=== PATIENT | female | born 1945 | race Caucasian/White ===

== ENCOUNTER → 2017-11-13 11:18 | Outpatient (CLI) | payer MEDICARE, OTHER, SELFPAY ==
--- NOTE | 2017-11-13 11:27 | DI.RAD.S_ITS ---
PROCEDURE: XR WRIST LT MIN 3V INDICATIONS: FALL FROM GROUND LEVEL TECHNIQUE: 4 views of the wrist were acquired. COMPARISON: None. FINDINGS: Bones: There is bony step-off involving the posterior aspect of the distal radius, as well as a vague linear lucency involving the articular surface of the distal radius. No suspicious bony lesions. Scaphoid view: Negative Soft tissues: Chondrocalcinosis involving the triangular fibrocartilage complex. Joint space narrowing and periarticular osteophyte formation at the scaphotrapezial and first metacarpal joints. IMPRESSION: 1. Findings suggestive of mildly displaced distal radial fracture. 2. Osteoarthritis. Dictated by: Jon Holguin M.D. on 11/13/2017 at 11:46 Approved by: Jon Holguin M.D. on 11/13/2017 at 11:48
== END ==
PROVIDERS: Family Provider Family Medicine; PCP Family Medicine; Visit Provider Physician Assistant
DX: S69.92XA Unspecified injury of left wrist, hand and finger(s), initial encounter (principal); M19.032 Primary osteoarthritis, left wrist; W18.30XA Fall on same level, unspecified, initial encounter
CPT/HCPCS: 73110

== ENCOUNTER → 2018-04-19 13:24 | Outpatient (CLI) | payer MEDICARE, OTHER, SELFPAY ==
[2018-04-19 15:57] LABS: Cholesterol 204 mg/dL (140-199); HDL Cholesterol 54 mg/dL (40-60); LDL Cholesterol Calculated 124 mg/dL (<100); Triglycerides 128 mg/dL (35-150)
[2018-04-19 16:14] LABS: Vitamin D 25 Hydroxy (D3) 35.1 ng/mL (30.0-100.0)
== END ==
PROVIDERS: Family Provider Family Medicine; PCP Student in an Organized Health Care Education/Training Program; Visit Provider Student in an Organized Health Care Education/Training Program
DX: I10 Essential (primary) hypertension (principal); M81.0 Age-related osteoporosis without current pathological fracture; Z13.220 Encounter for screening for lipoid disorders
CPT/HCPCS: 36415; 80061; 82306

== ENCOUNTER → 2018-04-22 11:24 | Outpatient (CLI) | payer MEDICARE, OTHER, SELFPAY ==
[2018-04-25 16:46] LABS: Fecal Immunochemical Test NOT DETECTED
== END ==
PROVIDERS: PCP Student in an Organized Health Care Education/Training Program; Visit Provider Student in an Organized Health Care Education/Training Program
DX: I10 Essential (primary) hypertension (principal); M81.0 Age-related osteoporosis without current pathological fracture; Z13.220 Encounter for screening for lipoid disorders
CPT/HCPCS: 82274

== ENCOUNTER → 2018-05-12 13:57 | Outpatient (CLI) | payer MEDICARE, OTHER, SELFPAY ==
--- NOTE | 2018-05-12 13:58 | DI.RAD.S_ITS ---
This blank DEXA report has been sent in error by the PACS system. The correct and complete report will be forthcoming in 1-2 days. Thank you for your patience and understanding. Dictated by: Chema Good M.D. on 05/12/2018 at 14:33 Approved by: Chema Good M.D. on 05/12/2018 at 14:34
== END ==
PROVIDERS: PCP Student in an Organized Health Care Education/Training Program; Visit Provider Student in an Organized Health Care Education/Training Program
DX: M81.0 Age-related osteoporosis without current pathological fracture (principal); Z78.0 Asymptomatic menopausal state
CPT/HCPCS: 77080

== ENCOUNTER → 2019-11-17 11:06 | Outpatient (CLI) | payer MEDICARE, OTHER, SELFPAY ==
[2019-11-17 12:22] LABS: Cholesterol 185 mg/dL (140-199); HDL Cholesterol 68 mg/dL (40-60); LDL Cholesterol Calculated 89 mg/dL (<100); Triglycerides 142 mg/dL (35-150)
== END ==
PROVIDERS: PCP Student in an Organized Health Care Education/Training Program; Referring Provider Student in an Organized Health Care Education/Training Program; Visit Provider Student in an Organized Health Care Education/Training Program
DX: E78.00 Pure hypercholesterolemia, unspecified (principal)
CPT/HCPCS: 36415; 80061

== ENCOUNTER → 2021-04-25 14:51 | Outpatient (CLI) | payer MEDICARE, OTHER, SELFPAY ==
[2021-04-25 17:51] LABS: Blood Urea Nitrogen 27 mg/dL (7-17); Calcium 10.8 mg/dL (8.4-10.2); Carbon Dioxide 29 mmol/L (22-32); Chloride 103 mmol/L (98-107); Estimated Glomerular Filt Rate 53.8 mL/min (>60); Glucose 86 mg/dL (80-110); HEMOLYSIS < 15 (0-50); Potassium 3.8 mmol/L (3.4-5.1); Sodium 137 mmol/L (137-145)
== END ==
PROVIDERS: PCP Student in an Organized Health Care Education/Training Program; Referring Provider Student in an Organized Health Care Education/Training Program; Visit Provider Student in an Organized Health Care Education/Training Program
DX: M81.0 Age-related osteoporosis without current pathological fracture (principal); Z78.0 Asymptomatic menopausal state; I10 Essential (primary) hypertension
CPT/HCPCS: 36415; 77080; 77081; 80048

== ENCOUNTER → 2021-05-14 10:54 | Outpatient (CLI) | payer MEDICARE, OTHER, SELFPAY ==
[2021-05-14 12:25] LABS: BUN Creatinine Ratio 23.1 (6-22); Blood Urea Nitrogen 21 mg/dL (7-17); Calcium 10.6 mg/dL (8.4-10.2); Carbon Dioxide 28 mmol/L (22-32); Chloride 106 mmol/L (98-107); Estimated Glomerular Filt Rate 59.9 mL/min (>60); Glucose 92 mg/dL (80-110); HEMOLYSIS < 15 (0-50); Potassium 4.6 mmol/L (3.4-5.1); Sodium 139 mmol/L (137-145)
[2021-05-14 12:28] LABS: Vitamin D 25 Hydroxy (D3) 31.9 ng/mL (30.0-100.0)
[2021-05-15 07:18] LABS: Parathyroid Hormone Int 54 pg/mL (15-65)
== END ==
PROVIDERS: PCP Student in an Organized Health Care Education/Training Program; Referring Provider Student in an Organized Health Care Education/Training Program; Visit Provider Student in an Organized Health Care Education/Training Program
DX: E83.52 Hypercalcemia (principal); N17.9 Acute kidney failure, unspecified
CPT/HCPCS: 36415; 80048; 82306; 83970

== ENCOUNTER → 2021-07-16 09:27 | Outpatient (CLI) | payer MEDICARE, OTHER, SELFPAY ==
--- NOTE | 2021-07-17 08:57 | PM.TREADMILL ---
Cardiac Stress Test Report Referral & Results Date Patient Seen: 07/17/21 Time Patient Seen: 08:45 Requesting provider: Rajendra Torre Indication: Dyspnea on exertion Rest ECG: NSR Procedure Note: Today, following both written and verbal informed consent, the patient was exercised according to a standard Chris protocol. The patient went for a total of 4 minutes achieving a maximum heart rate of 174 maximum systolic blood pressure of 170. This is approximately 7.0 METs. Exercise was terminated at this point because of fatigue. Patient was also given Cardiolite through a previously started Hep-Lock IV by the agronomy technician approximately 1 minute prior to the cessation of exercise. Normal hemodynamic response to exercise. Marked exercise of capacity impairment (FA I +30% on active scale). ST depressions in leads 2, 3, AVF, and precordial leads. Occasional PACs/PVC. No signs or symptoms of angina. Presenting symptom of SOB was reproduced early in exercise protocol. O2 sat 94% at that time. Impression: Intermediate probability for ischemia. Perfusion imaging pending. Please note: Actual ECG tracings can be found in the PACS system.
--- NOTE | 2021-07-17 20:21 | DI.NM.S_ITS ---
DATE OF SERVICE: 07/16/2021 PROCEDURE: Exercise perfusion study. INDICATION: Dyspnea on exertion, hypertension. RADIOPHARMACEUTICAL: 27.0 millicurie technetium-99m Myoview IV was injected at stress and 24.7 millicurie technetium-99m Myoview IV was injected at rest. CARDIAC STRESS: The patient underwent exercise perfusion study under the supervision of an attending staff. She walked on Chris protocol for 4 minutes and 01 seconds. She felt fatigue and shortness of breath. Baseline blood pressure 148/88. Peak blood pressure 170/102. within 1 minute, her heart rate was about 160. Maximum heart rate was 174 beats per minute. Achieved 122 percent of target heart rate. There was enhanced chronotropic response. Baseline rhythm was sinus with repolarization changes and some ST flattening in inferolateral leads. During stress, there was some nonspecific upsloping ST depression in inferolateral leads without any convincing ischemic changes. No significant arrhythmias seen. RAW DATA: There appears to be adequate myocardial uptake. GATED STUDY: Stress LV ejection fraction 81 percent without any obvious wall motion abnormalities. Resting end-diastolic volume 73 mL. TID ratio 1.0, which is within normal limits. Lung/heart ratio 0.38, which is within normal limits. MYOCARDIAL PERFUSION SCAN: Stress supine images revealed normal myocardial perfusion. On resting supine, there was minimally decreased perfusion of apex. However, the stress supine and stress prone images revealed normal myocardial perfusion. CONCLUSION: Normal myocardial perfusion with stress left ventricular ejection fraction 81 percent. Significantly diminished exercise tolerance. LINDA positive 30 percent. The patient walked on Chris protocol for 4 minutes and 01 seconds. Enhanced chronotropic response. Mildly hypertensive blood pressure response. Diastolic blood pressure increased from 88 to 102 mmHg. The patient had shortness of breath and fatigue. Oxygen saturation was 94 percent. As far as perfusion scan is concerned, this is a low-risk myocardial perfusion scan. Ashley Campbell - BRITNEY/jena/son doc#: [id number]/job#: [id number] dd: 07/17/2021 17:17:00 dt: 07/17/2021 20:04:00 DICTATING MD/COPIES TO: Dee Dee Colmenares MD COPIES MNE: ALETA;
== END ==
PROVIDERS: PCP Student in an Organized Health Care Education/Training Program; Referring Provider Student in an Organized Health Care Education/Training Program; Visit Provider Student in an Organized Health Care Education/Training Program
DX: R06.00 Dyspnea, unspecified (principal); Z20.822 Contact with and (suspected) exposure to COVID-19
CPT/HCPCS: 78452; 87635; 93016; 93017; 93018; C9803; A9502

== ENCOUNTER → 2021-07-16 11:17 | Outpatient (CLI) | payer MEDICARE, OTHER, SELFPAY ==
[2021-07-16 12:26] LABS: COVID19 -Nasal RAPID Negative (Negative)
== END ==
PROVIDERS: PCP Student in an Organized Health Care Education/Training Program; Visit Provider Family Medicine Sleep Medicine
DX: Z20.822 Contact with and (suspected) exposure to COVID-19 (principal)
CPT/HCPCS: 87635

== ENCOUNTER → 2021-12-29 07:17 | Outpatient (CLI) | payer MEDICARE, OTHER, SELFPAY ==
[2021-12-29 10:32] LABS: Blood Urea Nitrogen 19 mg/dL (7-17); Carbon Dioxide 25 mmol/L (22-32); Chloride 105 mmol/L (98-107); Estimated Glomerular Filt Rate > 60 mL/min (>60); Glucose 93 mg/dL (80-110); HEMOLYSIS < 15 (0-50); Potassium 3.7 mmol/L (3.4-5.1); Sodium 140 mmol/L (137-145)
[2021-12-31 07:01] LABS: Parathyroid Hormone Int 68 pg/mL (15-65)
== END ==
PROVIDERS: PCP Student in an Organized Health Care Education/Training Program; Referring Provider Student in an Organized Health Care Education/Training Program; Visit Provider Student in an Organized Health Care Education/Training Program
DX: E21.0 Primary hyperparathyroidism (principal); I10 Essential (primary) hypertension
CPT/HCPCS: 36415; 80048; 83970

== ENCOUNTER → 2023-03-08 07:09 | Outpatient (CLI) | payer MEDICARE, OTHER, SELFPAY ==
[2023-03-08 08:13] LABS: Add Manual Diff / Slide Review NO; Basophils Absolute Auto 0 /uL (0-100); Basophils Percent Auto 0.4 % (0-2); Eosinophils Absolute Auto 300 /uL (0-450); Eosinophils Percent Auto 3.7 % (2-4); Hematocrit 35.7 % (36-46); Hemoglobin 12.4 g/dL (12.0-16.0); Lymphocytes Absolute Auto 2300 /uL (1100-4500); Lymphocytes Percent Auto 30.6 % (25-40); Mean Corpuscular HGB Conc 34.8 % (30-36); Mean Corpuscular Hemoglobin 30.8 PG (26-34); Mean Corpuscular Volume 88.4 fL (80-100); Monocytes Absolute Auto 700 /uL (0-900); Monocytes Percent Auto 9.2 % (3-14); Neutrophils Absolute Auto 4200 /uL (1500-7000); Neutrophils Percent Auto 56.1 % (50-75); Platelet Count 243 X10^3/uL (150-400); Red Blood Cell Count 4.04 X10^6/uL (4.0-5.2); Red Cell Distribution Width 13.8 % (11.6-14.8); White Blood Cell Count 7.5 X10^3/uL (4.5-11.0)
[2023-03-08 08:36] LABS: Alanine Aminotransferase 18 IU/L (<35); Albumin 4.3 g/dL (3.5-5.0); Albumin Globulin Ratio 1.2 (1.0-2.8); Alkaline Phosphatase 87 U/L (38-126); Aspartate Aminotransferase 33 IU/L (14-36); BUN Creatinine Ratio 28.8 (6-22); Bilirubin Total 0.5 mg/dL (0.2-1.3); Blood Urea Nitrogen 19 mg/dL (7-17); Calcium 10.1 mg/dL (8.4-10.2); Carbon Dioxide 25 mmol/L (22-32); Chloride 105 mmol/L (98-107); Cholesterol 200 mg/dL (140-199); Estimated Glomerular Filt Rate > 60 mL/min (>60); Globulin 3.5 g/dL (1.7-4.1); Glucose 91 mg/dL (80-110); HDL Cholesterol 63 mg/dL (40-60); HEMOLYSIS < 15 (0-50); LDL Cholesterol Calculated 116 mg/dL (<100); Potassium 3.5 mmol/L (3.4-5.1); Sodium 139 mmol/L (137-145); Total Protein 7.8 g/dL (6.3-8.2); Triglycerides 105 mg/dL (35-150)
[2023-03-08 08:49] LABS: Vitamin D 25 Hydroxy (D3) 31.7 ng/mL (30.0-100.0)
[2023-03-08 09:05] LABS: TSH w/ Reflex to FT4 4.49 uIU/mL (0.47-4.68)
[2023-03-10 10:43] LABS: Calcium 9.7 mg/dL (8.7-10.3); Parathyroid Hormone, Intact 113 pg/mL (15-65)
== END ==
PROVIDERS: PCP Family Medicine; Referring Provider Family Medicine; Visit Provider Family Medicine
DX: E78.00 Pure hypercholesterolemia, unspecified (principal); E21.0 Primary hyperparathyroidism; I10 Essential (primary) hypertension; L67.8 Other hair color and hair shaft abnormalities; R79.89 Other specified abnormal findings of blood chemistry; M81.0 Age-related osteoporosis without current pathological fracture
CPT/HCPCS: 36415; 80053; 80061; 82306; 82310; 83970; 84443; 85025

== ENCOUNTER → 2023-03-20 10:08 | Outpatient (CLI) | payer MEDICARE, OTHER, SELFPAY ==
[2023-03-20 11:56] LABS: Calcium Urine Random 16.8 mg/dL; Collection Time Urine 24 Hours
[2023-03-20 12:00] LABS: Calcium 24 Hour Urine 311 mg/day (100-300); Total Volume Urine 1850 mL
== END ==
PROVIDERS: PCP Family Medicine; Referring Provider Family Medicine; Visit Provider Family Medicine
DX: E21.0 Primary hyperparathyroidism (principal)
CPT/HCPCS: 82340

== ENCOUNTER → 2023-08-17 08:25 | Outpatient (CLI) | payer MEDICARE, OTHER, SELFPAY ==
--- NOTE | 2023-08-17 08:26 | DI.RAD.S_ITS ---
PROCEDURE: XR CHEST 2V INDICATIONS: Cough TECHNIQUE: 2 views of the chest were acquired. COMPARISON: [facility], , CHEST 2 VIEW, 01/14/2017, 10:28. FINDINGS: Surgical changes and devices: None. Lungs and pleura: Lungs are clear. No pleural effusions or pneumothorax. Mediastinum: Mediastinal contours are normal. Moderate hiatal hernia. Heart size is normal. Bones and chest wall: No suspicious bony abnormalities. Soft tissues appear unremarkable. IMPRESSION: Moderate hiatal hernia. No acute pulmonary process noted. Dictated by: Shay Madrigal M.D. on 08/17/2023 at 10:34 Approved by: Shay Madrigal M.D. on 08/17/2023 at 10:35
== END ==
PROVIDERS: PCP Family Medicine; Referring Provider Nurse Practitioner Family; Visit Provider Nurse Practitioner Family
DX: R05.9 Cough, unspecified (principal); K44.9 Diaphragmatic hernia without obstruction or gangrene
CPT/HCPCS: 71046

== ENCOUNTER 2023-08-21 08:47 | Emergency (ER) | payer MEDICARE, OTHER, SELFPAY ==
[2023-08-21] VITALS (8 sets, daily range): BP systolic 149–186; BP diastolic 75–104; PULSE 93–112; RESP 21–23; TEMP 36.4–37.1; O2SAT 93–96; BMI 22.3
--- NOTE | 2023-08-21 08:55 | DI.RAD.S_ITS ---
PROCEDURE: XR CHEST 1V INDICATIONS: Shortness of breath TECHNIQUE: One view of the chest was acquired. COMPARISON: [facility], CR, XR CHEST 2V, 08/17/2023, 8:26. FINDINGS: Surgical changes and devices: None. Lungs and pleura: Right middle lobe airspace opacity. Mild reticular thickening. Mediastinum: Large hiatal hernia. Heart size is normal. Bones and chest wall: No suspicious bony lesions. Overlying soft tissues appear unremarkable. IMPRESSION: Right middle lobe airspace opacity concerning for infection. Large hiatal hernia. Dictated by: Wesley Humphreys M.D. on 08/21/2023 at 8:20 Approved by: Wesley Humphreys M.D. on 08/21/2023 at 8:21
--- NOTE | 2023-08-21 09:03 | PC.NURSE ---
Upper respiratory congestion. x2 weeks. Pt reports taking benzontate pills
--- NOTE | 2023-08-21 09:07 | ED.SOB ---
HPI - SOB/Dyspnea General Chief Complaint: Shortness of Breath/Dyspnea Stated Complaint: sent by [facility] sob cough Time Seen by Provider: 08/21/23 08:56 Source: patient Mode of arrival: Ambulatory History of Present Illness HPI Narrative: patient is a 77-year-old female history of hypertension presenting today with ongoing cough and increasing shortness of breath. She reports that she has had a nonproductive cough for couple of weeks. She was seen evaluated at walk-in clinic on 4 days ago, suggested viral syndrome chest x-ray was done at that time did show any acute cardiopulmonary process. She reports over the last 4 days she has had increasing shortness of breath with exertion. No orthopnea. She is noted to be tachycardic but denies any sort chest pain or palpitations. She reports that she walks 4 miles daily however she is unable to walk around the house. She has no lower extremity edema no fever no sore throat but continues to have cough. Related Data Home Medications Medication Instructions Recorded Confirmed VITAMIN D (Vitamin D3) 1,000 unit PO QDAY ##0 10/21/10 08/21/23 [cranberry] ##0 12/01/12 08/21/23 Previous Rx's Medication Instructions Recorded dxfvwry-vtbmmzbzndcfj-jsdorbgu 250 1 tab PO Q4-6H PRN pain #30 tabs 04/19/18 mg-250 mg-65 mg tablet (Excedrin Extra Strength) lovastatin 20 mg tablet 20 mg PO Q OTHER DAY #45 tabs 03/16/23 nifedipine 30 mg tablet,extended 30 mg PO DAILY #90 tabs 03/16/23 release benzonatate 200 mg capsule 200 mg PO BID PRN cough #28 caps 08/17/23 azithromycin 250 mg tablet See Rx Instructions PO .COMPLEX #6 08/21/23 tabs cefdinir 300 mg capsule 300 mg PO Q12H #7 caps 08/21/23 Allergies Allergy/AdvReac Type Severity Reaction Status Date / Time sulfamethoxazole Allergy Severe Hives, rash Verified 08/21/23 08:23 [SULFAMETHOXAZOLE] trimethoprim [TRIMETHOPRIM] Allergy Severe Hives, rash Verified 08/21/23 08:23 ampicillin [AMPICILLIN] Allergy Unknown Hives Verified 08/21/23 08:23 Patient History Medical History Vision disorder Hearing loss Scoliosis Mumps Measles Chicken pox Anemia Depression Anxiety Osteoporosis Tachycardia Hypertension Surgical History Anesthesia History of tonsillectomy (~1955) History of eye surgery (~12/2014) Family History Brother Cancer Father History of heart disease Social History Smoking Status: Never smoker Smoking Status: Never smoker Exam Initial Vital Signs Initial Vital Signs: Vital Signs Temperature 98.7 F 08/21/23 08:55 Pulse Rate 111 H 08/21/23 08:55 Respiratory Rate 21 08/21/23 08:55 Blood Pressure 186/104 H 08/21/23 08:55 Pulse Oximetry 96 08/21/23 08:55 Oxygen Delivery Method Room Air 08/21/23 08:55 GENERAL: Alert pleasant well-appearing 77-year-old female and in no acute distress. HEENT: Head atraumatic,EOMI, pupils reactive, face symmetric, moist mucous membranes CARDIOVASCULAR: Tachycardic murmur RESPIRATORY: Breath sounds equal bilaterally, no wheezes rales or rhonchi. Speaks in full sentences no respiratory distress ABDOMEN: Soft, nontender. Normoactive bowel sounds all 4 quadrants. No guarding or rebound. EXTREMITIES: Normal range of motion, no clubbing or edema. Neurovascularly intact NEUROLOGICAL: Alert and oriented x4.Normal gait and speech. SKIN: Warm, dry, no laceration, no petechiae, no rashes or lesions. Scores CURB-65 Confusion: No BUN >19mg/dL (>7mmol/L): No Respiratory rate greater or equal to 30: No SBP <90mmHg or DBP less or equal to 60mmHg: No Age 65 or Older: Yes CURB-65 Total: 1 Score 0-1 Outpatient care, Score 2 Inpt vs. Obs, Score 3 or over Inpt admit with ICU for score of 4-5 Course Orders Ordered: ED Orders 08/21/23 08:55 XR chest 1V Stat Respiratory Panel (Film Array) Stat EKG-12 Lead Stat Measure peak expiratory flow ONCE RT Consult Eval and Treat NOW 08/21/23 09:12 Complete Blood Count AUTO DIFF Stat Comprehensive Metabolic Panel Stat Lactate (Lactic Acid) Stat NT-proBNP (BNP-Adult 18+) Stat Procalcitonin Stat Prothrombin Time INR Stat Troponin I Stat 08/21/23 09:58 Blood Culture Stat Discontinued Medications Ceftriaxone Sodium 2,000 mg/ (Sodium Chloride) 100 mls @ 200 mls/hr IV NOW ONE Stop: 08/21/23 09:42 Last Infusion: 08/21/23 11:05 Dose: Infused Documented By: Admin: 08/21/23 10:05 Dose: 200 mls/hr Documented By: JESSICA Azithromycin 500 mg/ Dextrose 250 mls @ 250 mls/hr IV NOW ONE Stop: 08/21/23 09:42 Last Infusion: 08/21/23 11:51 Dose: Infused Documented By: Admin: 08/21/23 10:40 Dose: 250 mls/hr Documented By: JESSICA Sodium Chloride (Normal Saline 0.9%) 1,000 mls @ 1,000 mls/hr IV BOLUS ONE Stop: 08/21/23 10:40 Last Infusion: 08/21/23 11:05 Dose: Infused Documented By: Admin: 08/21/23 10:04 Dose: 1,000 mls/hr Documented By: JESSICA Potassium Chloride (Potassium Chloride 20 Meq Tab) 40 meq PO NOW ONE Stop: 08/21/23 10:26 Last Admin: 08/21/23 10:30 Dose: 40 meq Documented By: JESSICA Vital Signs Vital signs: Vital Signs - 8 hr 08/21/23 08:55 08/21/23 08:55 08/21/23 09:00 Temperature 98.7 F Pulse Rate 111 H 111 H Respiratory Rate 21 21 Blood Pressure 186/104 H 171/76 H Pulse Oximetry 96 96 Oxygen Delivery Method Room Air 08/21/23 09:00 08/21/23 09:30 08/21/23 09:30 Temperature Pulse Rate 112 H 104 H Respiratory Rate 22 22 Blood Pressure 161/78 H Pulse Oximetry 96 Oxygen Delivery Method Room Air 08/21/23 10:00 08/21/23 10:00 08/21/23 10:30 Temperature Pulse Rate 101 H Respiratory Rate 21 Blood Pressure 161/83 H 166/79 H Pulse Oximetry 93 Oxygen Delivery Method 08/21/23 10:30 08/21/23 11:00 08/21/23 11:00 Temperature Pulse Rate 98 H 93 H Respiratory Rate Blood Pressure 163/77 H Pulse Oximetry 96 95 Oxygen Delivery Method 08/21/23 11:30 08/21/23 11:30 08/21/23 12:05 Temperature 97.6 F Pulse Rate 95 H Respiratory Rate 23 Blood Pressure 149/75 H Pulse Oximetry 94 Oxygen Delivery Method MDM - SOB/Dyspnea Lab Data 08/21/23 09:12 08/21/23 09:12 Labs: Lab Results 08/21/23 08/21/23 Range/Units 08:55 09:12 WBC 19.8 H (4.5-11.0) X10^3/uL RBC 3.89 L (4.0-5.2) X10^6/uL Hgb 11.8 L (12.0-16.0) g/dL Hct 34.7 L (36-46) % MCV 89.3 (80-100) fL MCH 30.4 (26-34) PG MCHC 34.0 (30-36) % RDW 13.3 (11.6-14.8) % Plt Count 347 (150-400) X10^3/uL Neut % (Auto) 78.6 H (50-75) % Lymph % (Auto) 9.9 L (25-40) % [place] % (Auto) 11.2 (3-14) % Eos % (Auto) 0.1 L (2-4) % Baso % (Auto) 0.2 (0-2) % Neut # (Auto) 17402 H (7145-8936) /uL Lymph # (Auto) 2000 (8756-6363) /uL [place] # (Auto) 2200 H (0-900) /uL Eos # (Auto) 0 (0-450) /uL Baso # (Auto) 0 (0-100) /uL PT 13.7 H (9.4-12.5) SECONDS INR 1.2 (0.9-1.3) Sodium 136 L (137-145) mmol/L Potassium 2.9 L (3.4-5.1) mmol/L Chloride 101 (98-107) mmol/L Carbon Dioxide 24 (22-32) mmol/L BUN 16 (7-17) mg/dL Creatinine 0.75 (0.52-1.04) mg/dL Estimated GFR > 60 (>60) mL/min BUN/Creatinine Ratio 21.3 (6-22) Glucose 129 H (80-110) mg/dL Lactate 1.5 (0.7-2.1) mmol/L Calcium 9.7 (8.4-10.2) mg/dL Total Bilirubin 0.7 (0.2-1.3) mg/dL AST 28 (14-36) IU/L ALT 16 (<35) IU/L Alkaline Phosphatase 114 (38-126) U/L Troponin I < 0.012 (0.01-0.034) ng/mL NT-Pro-B Natriuret Pep 542 H (<450) pg/mL Total Protein 7.7 (6.3-8.2) g/dL Albumin 4.2 (3.5-5.0) g/dL Globulin 3.5 (1.7-4.1) g/dL Albumin/Globulin Ratio 1.2 (1.0-2.8) Procalcitonin 0.117 (<0.5) ng/mL Chlamy pneumoniae PCR Not detected (Not Detect) Adenovirus (PCR) Not detected (Not Detect) B.parapertussis DNA PCR Not detected (Not Detecte) Coronavirus OC43 (PCR) Detected H (Not Detect) Coronavirus HKU1 (PCR) Not detected (Not Detect) Coronavirus 229E (PCR) Not detected (Not Detect) SARS-CoV-2 (PCR) Not detected (Not Detecte) Coronavirus NL63 (PCR) Not detected (Not Detect) Human Metapneumovir PCR Not detected (Not Detect) Influenza Type A (PCR) Not detected (Not Detect) Influenza Type B (PCR) Not detected (Not Detect) M. pneumoniae (PCR) Not detected (Not Detect) Parainfluenza 1 (PCR) Not detected (Not Detect) Parainfluenza 2 (PCR) Not detected (Not Detect) Parainfluenza 3 (PCR) Not detected (Not Detect) Parainfluenza 4 (PCR) Not detected (Not Detect) RSV (PCR) Not detected (Not Detect) Entero/Rhino (PCR) Detected H (Not Detect) Imaging Data Chest x-ray: Radiologist's Impression: PROCEDURE: XR CHEST 1V INDICATIONS: Shortness of breath TECHNIQUE: One view of the chest was acquired. COMPARISON: [facility], CR, XR CHEST 2V, 08/17/2023, 8:26. FINDINGS: Surgical changes and devices: None. Lungs and pleura: Right middle lobe airspace opacity. Mild reticular thickening. Mediastinum: Large hiatal hernia. Heart size is normal. Bones and chest wall: No suspicious bony lesions. Overlying soft tissues appear unremarkable. IMPRESSION: Right middle lobe airspace opacity concerning for infection. Large hiatal hernia. Dictated by: Wesley Humphreys M.D. on 08/21/2023 at 8:20 ECG Data Attestation: I personally reviewed and interpreted this ECG as follows: Prior ECG tracings: not available for review Interpretation: Sinus tachycardia rate 107 ND interval 138 QRS [address] changes Q-wave noted in lead 3 MDM Narrative Medical decision making narrative: Patient 77-year-old female history of hypertension presenting today with upper respiratory like symptoms. Worsening cough and shortness. Blood work has been reviewed WBC 19.8, hemoglobin 11 hematocrit 34.7, platelets 347, sodium 136 potassium 2.9 carbon dioxide 24 BUN 16 creatinine 0.75 glucose 129, lactate 1.5 bilirubin 0.7 AST 28 ALT 16 alk-phos 114 troponin negative BNP 542 procalcitonin 0.117 respiratory panel is positive for coronavirus OC43, and ENtero/rhino virus Chest x-ray has been reviewed which does show right lower lobe infiltrate and hiatal hernia EKG has been reviewed sinus tachycardia without ischemic changes Patient 77-year-old female presents today with upper respiratory like symptoms. She appears well nontoxic mildly tachycardic but this does improve with some IV fluids. She receives Rocephin and azithromycin for community-acquired pneumonia in the ED. She does have significant leukocytosis but curb 65 score and pneumonia severity score recommend outpatient treatment. She has not hypoxic or hypotensive she has normal lactic acid. Blood cultures are pending. She does have a positive SIRS with elevated heart rate and respiratory rate but no evidence of septic shock. She seems appropriate for outpatient treatment and is motivated to go home. She ambulated in the ED without significant hypoxia or tachycardia PSI/PORT Score: Pneumonia Severity Index for CAP from [email or web address] on 08/21/2023 All calculations should be rechecked by clinician prior to use RESULT SUMMARY: 69 points Risk Class II, 0.6-0.9% mortality. Outpatient treatment reasonable, barring other factors affecting care. INPUTS: Age ?> 77 years Sex ?> -10 = Female jail resident ?> 0 = No Neoplastic disease ?> 0 = No Liver disease history ?> 0 = No CHF history ?> 0 = No Cerebrovascular disease history ?> 0 = No Renal disease history ?> 0 = No Altered mental status ?> 0 = No Respiratory rate >=0 breaths/min ?> 0 = No Systolic blood pressure <90 mmHg ?> 0 = No Temperature <35&deg;C (95&deg;F) or >39.9&deg;C (103.8&deg;F) ?> 0 = No Pulse >=25 beats/min ?> 0 = No pH <7.35 ?> 0 = No BUN >=0 mg/dL or >=1 mmol/L ?> 0 = No Sodium <130 mmol/L ?> 0 = No Glucose >=50 mg/dL or >=4 mmol/L ?> 0 = No Hematocrit <30% ?> 0 = No Partial pressure of oxygen <60 mmHg or <8 kPa ?> 0 = No Pleural effusion on x-ray ?> 0 = No Discharge Plan Departure Patient Disposition: Home Clinical Impression: Pneumonia Instructions: DI for Pneumonia -- Adult Activity Restrictions/Additional Instructions: *You have been diagnosed with pneumonia *What to do: At this time increase fluids as tolerated. Recommend resting taking it easy hopefully start feeling better in of days *Continue to take medications as directed--start tomorrow. pock up today Cefdinir 300 mg twice a day for 7 days Azithromycin take as directed for 5 days Tylenol Motrin as needed for pain or fever *Follow up with your primary care provider in 2-3 days or call [phone] *Return to ER if you should have increasing shortness of breath, increased confusion not tolerating fluids urinating [or] any new, worsening or concerning symptoms Prescriptions: New cefdinir 300 mg capsule 300 mg PO Q12H Qty: 7 0RF azithromycin 250 mg tablet See Rx Instructions PO .COMPLEX Qty: 6 0RF Rx Instructions: For 250 mg dose pack: take 500 mg today (day 1), then 250 mg for 4 days (days 2-5) No Action benzonatate 200 mg capsule 200 mg PO BID PRN (Reason: cough) Qty: 28 0RF VITAMIN D (Vitamin D3) 1,000 unit PO QDAY Qty: 0 [cranberry] Qty: 0 nifedipine 30 mg tablet extended release 30 mg PO DAILY Qty: 90 3RF lovastatin 20 mg tablet 20 mg PO Q OTHER DAY Qty: 45 3RF sgoxcpr-dgnkqruwmhzxc-vjagxllc [Excedrin Extra Strength] 250-250-65 mg tablet 1 tab PO Q4-6H PRN (Reason: pain) Qty: 30 0RF Referrals: Constanza Faye DO [Primary Care Provider] - Stand Alone Forms: Patient Portal/API
[2023-08-21 09:19] LABS: Add Manual Diff / Slide Review NO; Basophils Absolute Auto 0 /uL (0-100); Basophils Percent Auto 0.2 % (0-2); Eosinophils Absolute Auto 0 /uL (0-450); Eosinophils Percent Auto 0.1 % (2-4); Hematocrit 34.7 % (36-46); Hemoglobin 11.8 g/dL (12.0-16.0); Lymphocytes Absolute Auto 2000 /uL (1100-4500); Lymphocytes Percent Auto 9.9 % (25-40); Mean Corpuscular Hemoglobin 30.4 PG (26-34); Mean Corpuscular Volume 89.3 fL (80-100); Monocytes Absolute Auto 2200 /uL (0-900); Monocytes Percent Auto 11.2 % (3-14); Neutrophils Absolute Auto 15600 /uL (1500-7000); Neutrophils Percent Auto 78.6 % (50-75); Platelet Count 347 X10^3/uL (150-400); Red Blood Cell Count 3.89 X10^6/uL (4.0-5.2); Red Cell Distribution Width 13.3 % (11.6-14.8); White Blood Cell Count 19.8 X10^3/uL (4.5-11.0)
[2023-08-21 09:27] LABS: INR 1.2 (0.9-1.3); Prothrombin Time 13.7 SECONDS (9.4-12.5)
[2023-08-21 09:33] LABS: Lactate (Lactic Acid) 1.5 mmol/L (0.7-2.1)
[2023-08-21 09:34] LABS: Alanine Aminotransferase 16 IU/L (<35); Albumin 4.2 g/dL (3.5-5.0); Albumin Globulin Ratio 1.2 (1.0-2.8); Alkaline Phosphatase 114 U/L (38-126); Aspartate Aminotransferase 28 IU/L (14-36); BUN Creatinine Ratio 21.3 (6-22); Bilirubin Total 0.7 mg/dL (0.2-1.3); Blood Urea Nitrogen 16 mg/dL (7-17); Calcium 9.7 mg/dL (8.4-10.2); Carbon Dioxide 24 mmol/L (22-32); Chloride 101 mmol/L (98-107); Estimated Glomerular Filt Rate > 60 mL/min (>60); Globulin 3.5 g/dL (1.7-4.1); Glucose 129 mg/dL (80-110); HEMOLYSIS < 15 (0-50); Potassium 2.9 mmol/L (3.4-5.1); Sodium 136 mmol/L (137-145); Total Protein 7.7 g/dL (6.3-8.2)
[2023-08-21 09:46] LABS: NT-proBNP (BNP-Adult 18+) 542 pg/mL (<450); Troponin I < 0.012 ng/mL (0.01-0.034)
[2023-08-21 09:50] LABS: Procalcitonin 0.117 ng/mL (<0.5)
[2023-08-21 09:54] LABS: Adenovirus Not Detected (Not Detect); B. parapertussis Not Detected (Not Detecte); Bordetella pertussis Not Detected (Not Detect); Chlamydophila pneumoniae Not Detected (Not Detect); Coronavirus 229E Not Detected (Not Detect); Coronavirus HKU1 Not Detected (Not Detect); Coronavirus NL 63 Not Detected (Not Detect); Coronavirus OC43 Detected (Not Detect); Human Metapneumovirus Not Detected (Not Detect); Human Rhinovirus/Enterovirus Detected (Not Detect); Influenza A Not Detected (Not Detect); Influenza B Not Detected (Not Detect); Mycoplasma pneumoniae Not Detected (Not Detect); Parainfluenza Virus 1 Not Detected (Not Detect); Parainfluenza Virus 2 Not Detected (Not Detect); Parainfluenza Virus 3 Not Detected (Not Detect); Parainfluenza Virus 4 Not Detected (Not Detect); Respiratory Syncytial Virus Not Detected (Not Detect); SARS- CoV-2 Not Detected (Not Detecte)
[2023-08-21] MEDS: SODIUM CHLORIDE 0.9% 1,000 ML 1000 ML IV (10:04)
[2023-08-21] MEDS: cefTRIAXone 2,000 MG in SODIUM CHLORIDE 0.9% 100 ML 200 MG IV (10:05)
[2023-08-21] MEDS: POTASSIUM CHLORIDE 20 MEQ TAB 40 MEQ PO (10:30)
[2023-08-21] MEDS: AZITHROMYCIN 500 MG in DEXTROSE 5% IN WATER 250 ML 250 MG IV (10:40)
--- NOTE | 2023-08-21 11:51 | PC.NURSE ---
Lowest ambulatory sat 93%. MD Rios made aware. Pt educated on incentive spirometer.
== END 2023-08-21 12:07 | disposition home or self-care (01) ==
PROVIDERS: Emergency Provider Emergency Medicine; PCP Family Medicine
DX: J18.9 Pneumonia, unspecified organism (principal); R06.02 Shortness of breath; B34.2 Coronavirus infection, unspecified; B34.8 Other viral infections of unspecified site; Z20.822 Contact with and (suspected) exposure to COVID-19
CPT/HCPCS: 36415; 71045; 80053; 83605; 83880; 84145; 84484; 85025; 85610; 87040; 87633; 93005; 96365; 96367; 99284; J0696

== ENCOUNTER → 2023-09-13 10:39 | Outpatient (CLI) | payer MEDICARE, OTHER, SELFPAY ==
[2023-09-13 12:26] LABS: BUN Creatinine Ratio 23.8 (6-22); Blood Urea Nitrogen 20 mg/dL (7-17); Calcium 10.1 mg/dL (8.4-10.2); Carbon Dioxide 25 mmol/L (22-32); Chloride 107 mmol/L (98-107); Estimated Glomerular Filt Rate > 60 mL/min (>60); Glucose 96 mg/dL (80-110); HEMOLYSIS < 15 (0-50); Phosphorous 3.6 mg/dL (2.8-4.1); Potassium 3.4 mmol/L (3.4-5.1); Sodium 139 mmol/L (137-145)
[2023-09-13 12:39] LABS: Vitamin D 25 Hydroxy (D3) 37.2 ng/mL (30.0-100.0)
[2023-09-14 07:37] LABS: Parathyroid Hormone Int 64 pg/mL (15-65)
== END ==
PROVIDERS: PCP Family Medicine; Referring Provider Internal Medicine Endocrinology, Diabetes & Metabolism; Visit Provider Internal Medicine Endocrinology, Diabetes & Metabolism
DX: E21.3 Hyperparathyroidism, unspecified (principal)
CPT/HCPCS: 36415; 80048; 82306; 83970; 84100

== ENCOUNTER → 2024-09-19 10:22 | Outpatient (CLI) | payer MEDICARE, OTHER, SELFPAY ==
--- NOTE | 2024-09-19 10:24 | DI.RAD.S_ITS ---
PROCEDURE: XR KNEE RT 3V INDICATIONS: medial pain after walking injury 2 wks ago TECHNIQUE: 3 views of the knee were acquired. COMPARISON: None. FINDINGS: On the lateral view there is a subtle 7 mm ill-defined calcific density cephalad to the patella which is nonspecific but may represent intra-articular loose body or other calcification versus artifact. Mild knee joint effusion. Ohgzkwid-ul-palhpx degenerative changes in the medial, lateral and patellofemoral compartments with joint space narrowing, osteophytes, Kellgren Shreyas grade 3-4. Joint space calcifications in the medial and lateral compartments, chondrocalcinosis commonly calcium pyrophosphate deposition or other process. No radiographic evidence of dislocation or high attenuation foreign body. IMPRESSION: Mild knee joint effusion. 7 mm calcification may represent loose body or other as discussed above. Degenerative changes. If symptoms persist or worsen, or there is high clinical suspicion of knee abnormality, MRI could be performed. Dictated by: Titus Rojo M.D. on 09/19/2024 at 12:04 Approved by: Titus Rojo M.D. on 09/19/2024 at 12:12
== END ==
PROVIDERS: PCP Family Medicine; Referring Provider Physician Assistant; Visit Provider Physician Assistant
DX: S86.919A Strain of unspecified muscle(s) and tendon(s) at lower leg level, unspecified leg, initial encounter (principal); M25.861 Other specified joint disorders, right knee; M25.461 Effusion, right knee
CPT/HCPCS: 73562

== ENCOUNTER → 2025-03-15 09:04 | Outpatient (CLI) | payer MEDICARE, OTHER, SELFPAY ==
--- NOTE | 2025-03-15 09:07 | DI.CT.S_ITS ---
PROCEDURE: CT CHEST WO CON INDICATIONS: BUSTAMANTE, SOB, hiatal hernia TECHNIQUE: Noncontrast 5 mm thick sections acquired from the pulmonary apices to the posterior costophrenic angles. 1 mm lung window, 5 mm thick coronal and sagittal and 7 mm axial MIP reformats were then acquired. For radiation dose reduction, the following was used: automated exposure control, adjustment of mA and/or kV according to patient size. COMPARISON: None. FINDINGS: Image quality: Diagnostic. Lower Neck: No enlarged lymph nodes. Thyroid: No thyroid nodules which require sonographic follow up, per consensus guidelines. Axillae: No enlarged lymph nodes. Chest Wall: Unremarkable. Bones: S shaped scoliotic curvature. Decreased osseous mineralization. Degenerative changes of the spine.. Lungs and Pleura: No pneumothorax or pleural effusions. Left basilar atelectasis from hiatal hernia. Scattered pulmonary nodules. Largest solid nodule in the left lower lobe measuring 4 mm (3/132).. Part solid nodule in the right upper lobe measuring approximately 7 mm (3/87). Multiple small thin-walled cyst versus emphysema. Heart: Heart size is normal. No pericardial effusion. Thoracic Vessels: The aorta and pulmonary arteries demonstrate normal size. Atherosclerotic vascular calcifications. Mediastinum and Jalyn: No enlarged lymph nodes. Esophagus: Large hiatal hernia within the left hemithorax. The pancreas also extends into the left hemithorax. Upper Abdomen: Nonobstructing left renal calcifications measuring up to 8 mm. Diverticulosis within the visualized colon. IMPRESSION: 1. Scattered pulmonary nodules with largest solid nodule measuring up to 4 mm and largest part solid nodule measuring up to 7 mm. Recommend follow-up CT chest in 3-6 months. 2. Multiple small thin-walled cyst versus mild emphysema. 3. Large hiatal hernia with the entire stomach and part of the pancreas extending into the left hemithorax. 4. Nonobstructing left renal calcifications measuring up to 8 mm. Dictated by: Hector Carrillo M.D. on 03/17/2025 at 13:58 Approved by: Hector Carrillo M.D. on 03/17/2025 at 14:04
== END ==
LOC: ECHO 09:06
PROVIDERS: PCP Family Medicine; Referring Provider Family Medicine; Visit Provider Family Medicine
DX: K44.9 Diaphragmatic hernia without obstruction or gangrene (principal); N20.0 Calculus of kidney; I10 Essential (primary) hypertension; R00.0 Tachycardia, unspecified; R06.00 Dyspnea, unspecified; R06.02 Shortness of breath; R91.8 Other nonspecific abnormal finding of lung field
CPT/HCPCS: 71250; 93306